=== PATIENT | male | born 1995 | race Two or more races ===

== ENCOUNTER 2024-03-07 10:39 | Emergency (ER) | payer MEDICAID, OTHER ==
[~2024-03-07] VITALS: Ht 165.1 cm; Wt 88.3 kg
[2024-03-07 13:07] VITALS: BP 136/81; PULSE 81; RESP 16; TEMP 97.9; O2SAT 98
[2024-03-07] MEDS ORDERED: midazolam 1 mg/ML 2ml injection ONE (20:28)
[2024-03-07] MEDS ORDERED: fentaNYL /PF 50mcg/ml 5ml ampule ONE (20:29)
[2024-03-07] MEDS ORDERED: LIDOcaine 2% (20mg/ml) 5ml vial ONE (20:31)
[2024-03-07] MEDS ORDERED: propofol inj 20 ML IV ONE (20:31)
[2024-03-07] MEDS ORDERED: ROPIVAcaine 0.5% (5mg/ml) 30ml vial ONE (20:31)
[2024-03-07] MEDS ORDERED: ceFAZolin 1000mg inj ONE (21:05)
[2024-03-07] MEDS ORDERED: ondansetron/PF 4mg/2ml inj ONE (22:19)
== END 2024-03-07 13:10 | disposition home or self-care (01) ==
LOC: ER 10:40
DX: S82.892A Other fracture of left lower leg, initial encounter for closed fracture (principal); X58.XXXA Exposure to other specified factors, initial encounter; Y93.89 Activity, other specified; Y92.89 Other specified places as the place of occurrence of the external cause; Y99.8 Other external cause status
CPT/HCPCS: 99281; J0690; J2250; J2405; J2704; J2795; J3010; J3490

== ENCOUNTER 2024-03-07 15:41 | Inpatient (IN) | payer MEDICAID, OTHER ==
[2024-03-07] VITALS (8 sets, daily range): BP systolic 124–139; BP diastolic 83–94; PULSE 74–84; RESP 11–18; TEMP 98; O2SAT 98–100
[~2024-03-07] VITALS: Ht 167.6 cm; Wt 86.4 kg
[2024-03-07 17:01] LABS: BASOPHILS % (AUTO) 0.5 % (0-1); EOSINOPHILS # (AUTO) 0.1 X10'3 (0-0.9); EOSINOPHILS % (AUTO) 1.3 % (0-6); HEMATOCRIT 45.7 % (42.0-52.0); HEMOGLOBIN 15.6 g/dl (14.0-17.9); LYMPHOCYTES # (AUTO) 2.3 X10'3 (1.1-4.8); LYMPHOCYTES % (AUTO) 31.6 % (21-51); MEAN CORPUSCULAR HEMOGLOBIN 30.2 PG (27.0-31.0); MEAN CORPUSCULAR HGB CONC 34.1 g/dL (33.0-36.5); MEAN CORPUSCULAR VOLUME 88.7 FL (78-98); MEAN PLATELET VOLUME 8.1 FL (7.4-10.4); MONOCYTES # (AUTO) 0.6 X10'3 (0-0.9); MONOCYTES % (AUTO) 8.6 % (2-12); NEUTROPHILS # (AUTO) 4.3 X10'3 (1.8-7.7); PLATELET COUNT 317 X10'3 (140-440); RED BLOOD COUNT 5.15 X10'6 (4.70-6.10); RED CELL DISTRIBUTION WIDTH 12.2 % (11.5-14.5); WHITE BLOOD COUNT 7.4 X10'3 (4.5-11.0)
[2024-03-07] MEDS: ceFAZolin inj. 2,000 MG in dextrose 5%-water 100 ML IV ONE (17:01)
[2024-03-07] MEDS: ringers solution, lacted 1,000 ML IV SCH ×2 (17:01→18:25)
[2024-03-07 17:08] LABS: ALBUMIN 4.2 G/DL (3.4-5.0); ANION GAP 9 (8-16); BLOOD UREA NITROGEN 14 MG/DL (7-18); BUN/CREATININE RATIO 16.3 (10.0-20.0); CALCIUM 9.5 MG/DL (8.5-10.1); CHLORIDE 101 MMOL/L (99-107); CREATININE 0.86 MG/DL (0.60-1.10); GLUCOSE 82 MG/DL (70-104); POTASSIUM 4.3 MMOL/L (3.5-5.1); SODIUM 139 MMOL/L (135-145); TOTAL CARBON DIOXIDE 29.2 MMOL/L (24-32); eCRCL 113 ML/MIN; eGFR > 90 ML/MIN
[2024-03-07] MEDS ORDERED: magnesium sulf-water 4G/100mL 100 ML IV PRN (17:30)
[2024-03-07] MEDS ORDERED: HYDROcodone/acetaminophen 5mg/325mg tablet PO PRN (17:30)
[2024-03-07] MEDS ORDERED: acetaminophen 325mg tablet PO PRN (17:30)
[2024-03-07] MEDS ORDERED: potassium Cl 40MEQ/1/2NS 520ml 520 ML IV PRN (17:30)
[2024-03-07] MEDS ORDERED: magnesium Cl slow-release 64mg tablet PO PRN (17:30)
[2024-03-07] MEDS ORDERED: ondansetron/PF 4mg/2ml inj IV PRN ×2 (17:30→18:25)
[2024-03-07] MEDS ORDERED: magnesium sulf-water 2g/50mL 50 ML IV PRN (17:30)
[2024-03-07] MEDS ORDERED: morphine 2 MG/ML inj. syringe IV PRN ×3 (17:30→18:25)
[2024-03-07] MEDS ORDERED: potassium Cl 20 mEq SR tablet PO PRN ×2 (17:30)
[2024-03-07] MEDS ORDERED: proCHLORperazine 10 MG/2 ml inj IV PRN (18:25)
[2024-03-07] MEDS ORDERED: meperidine/PF 25mg/ml syringe IV PRN ×3 (18:25)
[2024-03-07] MEDS ORDERED: labetalol 20mg/4ml (5mg/ml) syringe IV PRN (18:25)
[2024-03-07] MEDS ORDERED: enalaprilat dihydrate 2.5mg/2ml vial IV PRN (18:25)
[2024-03-07] MEDS ORDERED: morphine 4 MG/ML inj SYRINge IV PRN (18:25)
[2024-03-07] MEDS: normal saline 1000ml 1,000 ML IV SCH (18:33)
[2024-03-07] MEDS: BUPIVAcaine/PF 2.5mg/ml (0.25%) 10ml vial ONE (19:43)
[2024-03-07] MEDS: bacitracin 15gm ointment TP ONE ×2 (19:43→22:15)
[2024-03-07] MEDS ORDERED: K and/or MAG REPLACEMENT MC SCH (20:00)
[2024-03-07] MEDS ORDERED: sevoflurane 250ml liquid IH ONE (20:27)
[2024-03-07] MEDS ORDERED: bisacodyl 10mg suppository rectal RC PRN (22:20)
[2024-03-07] MEDS ORDERED: magnesium hydroxide 30ml (MOM) UD suspension PO PRN (22:20)
[2024-03-07] MEDS ORDERED: naloxone 0.4 mg/ml inj IV PRN (22:20)
[2024-03-07] MEDS: acetaminophen 1,000mg/100ml IV 100 ML IV ONE (22:50)
[2024-03-07] MEDS: HYDROcodone/acetaminophen 5mg/325mg tablet PO ONE (22:51)
[2024-03-08] MEDS ORDERED: sennosides 8.6mg tablet PO SCH (21:00)
== END 2024-03-07 23:33 | disposition home or self-care (01) | DRG 313 ==
LOC: ER 15:42 → ED HOLD 17:31
PROVIDERS: ADMIT Internal Medicine; ATTEND Internal Medicine
PROC: 3E0T33Z Introduction of Anti-inflammatory into Peripheral Nerves and Plexi, Percutaneous Approach (ICD-10-PCS; 2024-03-07)
PROC: 0QSK04Z Reposition Left Fibula with Internal Fixation Device, Open Approach (ICD-10-PCS; 2024-03-07)
PROC: 3E0T3BZ Introduction of Anesthetic Agent into Peripheral Nerves and Plexi, Percutaneous Approach (ICD-10-PCS; principal; 2024-03-07 20:27)
DX: S82.832A Other fracture of upper and lower end of left fibula, initial encounter for closed fracture (principal); E66.9 Obesity, unspecified; Z68.30 Body mass index [BMI] 30.0-30.9, adult; X58.XXXA Exposure to other specified factors, initial encounter; Y93.89 Activity, other specified; Y99.8 Other external cause status; Y92.89 Other specified places as the place of occurrence of the external cause; S93.422A Sprain of deltoid ligament of left ankle, initial encounter
CPT/HCPCS: 36415; 73600; 76000; 80048; 82948; 85025; 96365; 99285; A4618; A6223; A6253; A6449; A7000; C1713; G0378; J0131; J0690; J2250; J2405; J2704; J2795; J3010; J3490; J7060; J7120